=== PATIENT | male | born 1945 | race Caucasian/White ===

== ENCOUNTER 2017-08-24 12:04 | Emergency (ER) | payer MEDICARE ==
[2017-08-24] MEDS: TRIAMCINOLONE ACET 40 MG/ML INJ INJ (13:58)
== END 2017-08-24 15:00 | disposition home or self-care (01) ==
LOC: FTE 12:04
DX: M70.51 Other bursitis of knee, right knee (principal); Y93.9 Activity, unspecified; Z79.84 Long term (current) use of oral hypoglycemic drugs
CPT/HCPCS: 20610; 99283-25

== ENCOUNTER 2018-09-01 05:30 | Emergency (ER) | payer MEDICARE, OTHER ==
[2018-09-01 06:32] LABS: URINE BLOOD (Dip) POC Negative (NEGATIVE); URINE KETONES (Dip) POC Negative (NEGATIVE); URINE LEUKOCYTE EST (Dip) POC Negative (NEGATIVE); URINE NITRITE (Dip) POC Negative (NEGATIVE); URINE TOTAL PROTEIN POC Negative (NEGATIVE)
[2018-09-01] MEDS: TAMSULOSIN (SR) 0.4 MG CAP PO (07:07)
[2018-09-01 08:25] LABS: URINE BLOOD (Dip) POC Negative (NEGATIVE); URINE KETONES (Dip) POC Negative (NEGATIVE); URINE LEUKOCYTE EST (Dip) POC Negative (NEGATIVE); URINE NITRITE (Dip) POC Negative (NEGATIVE); URINE TOTAL PROTEIN POC Negative (NEGATIVE)
== END 2018-09-01 07:45 | disposition home or self-care (01) ==
LOC: E/R 05:30
DX: R33.9 Retention of urine, unspecified (principal); E11.9 Type 2 diabetes mellitus without complications; Z79.84 Long term (current) use of oral hypoglycemic drugs
CPT/HCPCS: 81003; 99283

== ENCOUNTER 2018-09-02 16:10 | Emergency (ER) | payer MEDICARE, OTHER | END 2018-09-02 18:20 | disposition home or self-care (01) | LOC: FTE 16:10 | DX: R33.9 Retention of urine, unspecified (principal) | CPT/HCPCS: 99283 ==

== ENCOUNTER → 2018-10-03 | Outpatient (CLI) | payer MEDICARE, OTHER | END | disposition home or self-care (01) | LOC: HKI 14:27 | DX: M12.812 Other specific arthropathies, not elsewhere classified, left shoulder (principal) | CPT/HCPCS: G0463 ==

== ENCOUNTER → 2018-10-20 | Outpatient (CLI) | payer MEDICARE, OTHER | END | disposition home or self-care (01) | LOC: HKI 08:54 | DX: M75.102 Unspecified rotator cuff tear or rupture of left shoulder, not specified as traumatic (principal); I10 Essential (primary) hypertension; E78.00 Pure hypercholesterolemia, unspecified; Z79.82 Long term (current) use of aspirin | CPT/HCPCS: G0463 ==

== ENCOUNTER 2018-11-27 06:51 | Inpatient (IN) | payer MEDICARE, OTHER ==
[2018-11-27] MEDS: DEXAMETHASONE 4 MG/ML 1 ML INJ IV (06:30)
[~2018-11-27 06:51] MED LIST: LACTATED RINGER'S 1,000 ML IV
[2018-11-27] MEDS ORDERED: SUCCINYLCHOLINE CHLORIDE 100 MG/5 ML SYG IV (07:00)
[2018-11-27] MEDS ORDERED: NEOSTIGMINE 3 MG/3 ML SYRINGE (07:00)
[2018-11-27] MEDS ORDERED: GLYCOPYRROLATE 0.4 MG INJ (07:00)
[2018-11-27] MEDS ORDERED: ROCURONIUM 50 MG INJ (07:00)
[2018-11-27] MEDS ORDERED: PROPOFOL 200 MG INJ (07:00)
[2018-11-27] MEDS ORDERED: LIDOCAINE 2% (SDV) 5 ML INJ (07:00)
[2018-11-27] MEDS ORDERED: DESFLURANE 15 MIN (07:00)
[2018-11-27] MEDS ORDERED: CEFAZOLIN 1 GM INJ (07:00)
[2018-11-27] MEDS ORDERED: SURGIFOAM POWDER 1 GM KIT (07:19)
[2018-11-27] MEDS ORDERED: THROMBIN (BOVINE) 5,000 UNIT VIAL TP (07:19)
[2018-11-27 07:41] LABS: ADD MAN DIFF? NO
[2018-11-27 07:49] LABS: WHITE BLOOD COUNT 7.2 10^3/ul (4.8-10.8)
[2018-11-27 07:49] LABS: BASOPHIL # 0.1 10^3/ul (0.0-0.1); BASOPHILS % 0.7 % (0.0-2.0); EOSINOPHILS # 0.2 10^3/ul (0.0-0.5); EOSINOPHILS % 3.1 % (0.0-7.0); HEMATOCRIT 42.6 % (42.0-52.0); HEMOGLOBIN 13.7 g/dl (14.0-18.0); LYMPHOCYTES # 1.7 10^3/ul (0.8-2.9); LYMPHOCYTES % 23.2 % (15.0-51.0); MEAN CORPUSCULAR HEMOGLOBIN 29.8 pg (29.0-33.0); MEAN CORPUSCULAR HGB CONC 32.2 g/dl (32.0-37.0); MEAN CORPUSCULAR VOLUME 92.8 fl (82.0-101.0); MEAN PLATELET VOLUME 11.5 fl (7.4-10.4); MONOCYTE # 0.6 10^3/ul (0.3-0.9); MONOCYTES % 7.9 % (0.0-11.0); NEUTROPHIL # 4.7 10^3/ul (1.6-7.5); NEUTROPHILS % 64.7 % (39.0-77.0); PLATELET COUNT 195 10^3/UL (140-415); RED BLOOD COUNT 4.59 10^6/ul (4.70-6.10); RED CELL DISTRIBUTION WIDTH 12.2 % (11.5-14.5)
[2018-11-27] MEDS: ACETAMINOPHEN 1000MG/100ML IV 100 ML IVPB (08:15)
[2018-11-27] MEDS ORDERED: HYDROmorphONE 1 MG/5 ML IV SYRINGE IV ×2 (09:00)
[2018-11-27] MEDS ORDERED: MEPERIDINE 25 MG INJ IV (09:00)
[2018-11-27] MEDS ORDERED: ONDANSETRON 4 MG INJ IV (09:00)
[2018-11-27] MEDS ORDERED: METOCLOPRAMIDE 10 MG INJ IV (09:00)
[2018-11-27] MEDS ORDERED: DIPHENHYDRAMINE 50 MG INJ IV (09:00)
[2018-11-27] MEDS ORDERED: FENTAnyl 50 MCG/ML VIAL IV ×2 (09:00)
[2018-11-27] MEDS ORDERED: ALBUTEROL 0.083% (NEB) 2.5 MG/3 ML AMP HHN (09:00)
[2018-11-27] MEDS ORDERED: TRANEXAMIC ACID 1GM/100ML(PMX) 200 ML (09:12)
[2018-11-27] MEDS: TRANEXAMIC ACID 1GM/100ML(PMX) 100 ML AT INCISION X1 IVPB ×2 (10:09→14:28)
[2018-11-27] MEDS ORDERED: MIDAZOLAM 1 MG/ML 2 ML INJ (10:15)
[2018-11-27] MEDS ORDERED: ROPIVACAINE 0.5 % 30 ML VIAL (10:16)
[2018-11-27] MEDS ORDERED: oxyCODONE 5 MG TAB PO (12:30)
[2018-11-27] MEDS: CEFAZOLIN 1 GM/50 ML (PMX) 50 ML IVPB ×2 (13:49→20:06)
[2018-11-27] MEDS: TRANEXAMIC ACID 1GM/100ML(PMX) 100 ML AT CLOSURE X1 IVPB (14:28)
[2018-11-27] MEDS: CEFAZOLIN 2 GM/50 ML (PMX) 50 ML (FOR WT < 120 KG) IVPB (14:28)
[2018-11-27] MEDS: ACETAMINOPHEN 500 MG TAB PO (14:29)
[2018-11-27] MEDS: GABAPENTIN 100 MG CAP PO ×2 (14:55→20:06)
[2018-11-27] MEDS: LACTATED RINGER'S 1,000 ML IV ×2 (14:56→22:27)
[2018-11-27] MEDS: metFORMIN 500 MG TAB PO (17:45)
[2018-11-27] MEDS: INSULIN ASPART [NOVOLOG] 3 ML PEN SC ×2 (18:30→21:44)
[2018-11-27] MEDS: TAMSULOSIN (SR) 0.4 MG CAP PO (20:06)
[2018-11-27] MEDS: ALLOPURINOL 300 MG TAB PO (20:06)
[2018-11-27] MEDS: ATENOLOL 25 MG TAB PO (20:07)
[2018-11-27] MEDS: LATANOPROST 0.005% 2.5 ML OPH BOTH EYES (21:00)
[2018-11-27] MEDS: INSULIN GLARGINE [LANTus] (100 UNITS/ML) SYG SC (21:43)
[2018-11-28] MEDS: ACCU-CHEK XX (01:46)
[2018-11-28] MEDS: oxyCODONE 5 MG TAB PO (03:02)
[2018-11-28] MEDS: CEFAZOLIN 1 GM/50 ML (PMX) 50 ML IVPB (04:11)
[2018-11-28] MEDS: KETOROLAC 15 MG INJ IV (04:11)
[2018-11-28] MEDS: PANTOPRAZOLE (EC) 40 MG TAB PO (06:00)
[2018-11-28] MEDS: oxyCODONE 15 MG TAB PO ×3 (06:24→20:31)
[2018-11-28] MEDS: GABAPENTIN 100 MG CAP PO ×3 (08:48→20:32)
[2018-11-28] MEDS: QUETIAPINE 25 MG TAB PO (08:48)
[2018-11-28] MEDS: ALLOPURINOL 300 MG TAB PO ×2 (08:48→20:31)
[2018-11-28] MEDS: DULOXETINE 20 MG CAP DR PO (08:48)
[2018-11-28] MEDS: ASPIRIN 81 MG TAB PO (08:48)
[2018-11-28] MEDS: INSULIN ASPART [NOVOLOG] 3 ML PEN SC ×5 (08:51→20:34)
[2018-11-28] MEDS: metFORMIN 500 MG TAB PO ×2 (08:53→18:00)
[2018-11-28] MEDS: AMLODIPINE 5 MG TAB PO (08:54)
[2018-11-28] MEDS: LISINOPRIL 5 MG TAB PO (08:54)
[2018-11-28 10:54] LABS: ADD MAN DIFF? NO
[2018-11-28 11:02] LABS: BASOPHILS % 0.2 % (0.0-2.0); HEMATOCRIT 34.4 % (42.0-52.0); HEMOGLOBIN 11.4 g/dl (14.0-18.0); LYMPHOCYTES % 9.4 % (15.0-51.0); MEAN CORPUSCULAR HEMOGLOBIN 30.4 pg (29.0-33.0); MEAN CORPUSCULAR HGB CONC 33.1 g/dl (32.0-37.0); MEAN CORPUSCULAR VOLUME 91.7 fl (82.0-101.0); MEAN PLATELET VOLUME 11.1 fl (7.4-10.4); MONOCYTE # 0.9 10^3/ul (0.3-0.9); MONOCYTES % 8.9 % (0.0-11.0); NEUTROPHIL # 8.6 10^3/ul (1.6-7.5); NEUTROPHILS % 81.2 % (39.0-77.0); PLATELET COUNT 162 10^3/UL (140-415); RED BLOOD COUNT 3.75 10^6/ul (4.70-6.10); RED CELL DISTRIBUTION WIDTH 12.3 % (11.5-14.5)
[2018-11-28 11:02] LABS: WHITE BLOOD COUNT 10.6 10^3/ul (4.8-10.8)
[2018-11-28 11:18] LABS: ALANINE AMINOTRANSFERASE 16 IU/L (13-69); ALBUMIN 3.3 g/dl (3.3-4.9); ALBUMIN/GLOBULIN RATIO 1.22; ALKALINE PHOSPHATASE 70 IU/L (42-121); ANION GAP 8 (5-13); ASPARTATE AMINO TRANSFERASE 21 IU/L (15-46); BILIRUBIN,INDIRECT 0.6 mg/dl (0-1.1); BILIRUBIN,TOTAL 0.6 mg/dl (0.2-1.3); BLOOD UREA NITROGEN 26 mg/dl (7-20); CALCIUM 9.2 mg/dl (8.4-10.2); CARBON DIOXIDE 30 mmol/L (21-31); CHLORIDE 96 mmol/L (97-110); GLUCOSE 248 mg/dl (70-220); SODIUM 134 mmol/L (135-144)
[2018-11-28] MEDS: TAMSULOSIN (SR) 0.4 MG CAP PO (20:31)
[2018-11-28] MEDS: ATENOLOL 25 MG TAB PO (20:32)
[2018-11-28] MEDS: INSULIN GLARGINE [LANTus] (100 UNITS/ML) SYG SC (20:35)
[2018-11-28] MEDS: LATANOPROST 0.005% 2.5 ML OPH BOTH EYES (20:53)
[2018-11-29] MEDS: oxyCODONE 15 MG TAB PO ×2 (00:47→05:08)
[2018-11-29] MEDS: ACCU-CHEK XX (02:08)
[2018-11-29] MEDS: PANTOPRAZOLE (EC) 40 MG TAB PO (05:08)
[2018-11-29 05:18] LABS: ADD MAN DIFF? NO
[2018-11-29 05:29] LABS: WHITE BLOOD COUNT 9.1 10^3/ul (4.8-10.8)
[2018-11-29 05:29] LABS: BASOPHILS % 0.3 % (0.0-2.0); EOSINOPHILS % 0.3 % (0.0-7.0); HEMATOCRIT 35.9 % (42.0-52.0); HEMOGLOBIN 11.7 g/dl (14.0-18.0); LYMPHOCYTES # 1.1 10^3/ul (0.8-2.9); MEAN CORPUSCULAR HEMOGLOBIN 30.1 pg (29.0-33.0); MEAN CORPUSCULAR HGB CONC 32.6 g/dl (32.0-37.0); MEAN CORPUSCULAR VOLUME 92.3 fl (82.0-101.0); MEAN PLATELET VOLUME 11.8 fl (7.4-10.4); MONOCYTE # 0.9 10^3/ul (0.3-0.9); MONOCYTES % 9.8 % (0.0-11.0); NEUTROPHILS % 77.2 % (39.0-77.0); PLATELET COUNT 160 10^3/UL (140-415); RED BLOOD COUNT 3.89 10^6/ul (4.70-6.10); RED CELL DISTRIBUTION WIDTH 12.6 % (11.5-14.5)
[2018-11-29 05:39] LABS: ANION GAP 8 (5-13); BLOOD UREA NITROGEN 24 mg/dl (7-20); CARBON DIOXIDE 31 mmol/L (21-31); CHLORIDE 98 mmol/L (97-110); CREATININE 1.12 mg/dl (0.61-1.24); GLUCOSE 148 mg/dl (70-220); MAGNESIUM 1.8 mg/dl (1.7-2.5); PHOSPHORUS 3.8 mg/dl (2.5-4.9); POTASSIUM 4.1 mmol/L (3.5-5.1); SODIUM 137 mmol/L (135-144)
[2018-11-29] MEDS: oxyCODONE 5 MG TAB PO (08:52)
[2018-11-29] MEDS: QUETIAPINE 25 MG TAB PO (08:52)
[2018-11-29] MEDS: DULOXETINE 20 MG CAP DR PO (08:52)
[2018-11-29] MEDS: LISINOPRIL 5 MG TAB PO (08:53)
[2018-11-29] MEDS: GABAPENTIN 100 MG CAP PO ×3 (08:53→20:49)
[2018-11-29] MEDS: ASPIRIN 81 MG TAB PO (08:53)
[2018-11-29] MEDS: ALLOPURINOL 300 MG TAB PO ×2 (08:53→20:49)
[2018-11-29] MEDS: AMLODIPINE 5 MG TAB PO (08:53)
[2018-11-29] MEDS: INSULIN ASPART [NOVOLOG] 3 ML PEN SC ×7 (08:59→20:54)
[2018-11-29] MEDS: metFORMIN 500 MG TAB PO ×2 (09:01→18:12)
[2018-11-29] MEDS: TAMSULOSIN (SR) 0.4 MG CAP PO (20:49)
[2018-11-29] MEDS: ATENOLOL 25 MG TAB PO (20:50)
[2018-11-29] MEDS: INSULIN GLARGINE [LANTus] (100 UNITS/ML) SYG SC (20:53)
[2018-11-29] MEDS: LATANOPROST 0.005% 2.5 ML OPH BOTH EYES (21:00)
[2018-11-30] MEDS: MAGNESIUM HYDROXIDE 30ML CUP PO (00:19)
[2018-11-30] MEDS: ACCU-CHEK XX (02:00)
[2018-11-30 05:15] LABS: ADD MAN DIFF? NO
[2018-11-30 05:23] LABS: BASOPHILS % 0.3 % (0.0-2.0); EOSINOPHILS # 0.1 10^3/ul (0.0-0.5); EOSINOPHILS % 0.8 % (0.0-7.0); HEMATOCRIT 35.6 % (42.0-52.0); HEMOGLOBIN 11.4 g/dl (14.0-18.0); LYMPHOCYTES # 1.1 10^3/ul (0.8-2.9); LYMPHOCYTES % 13.9 % (15.0-51.0); MEAN CORPUSCULAR HEMOGLOBIN 29.5 pg (29.0-33.0); MEAN CORPUSCULAR VOLUME 92.2 fl (82.0-101.0); MEAN PLATELET VOLUME 11.5 fl (7.4-10.4); MONOCYTE # 0.9 10^3/ul (0.3-0.9); MONOCYTES % 12.1 % (0.0-11.0); NEUTROPHIL # 5.5 10^3/ul (1.6-7.5); NEUTROPHILS % 72.5 % (39.0-77.0); PLATELET COUNT 162 10^3/UL (140-415); RED BLOOD COUNT 3.86 10^6/ul (4.70-6.10); RED CELL DISTRIBUTION WIDTH 12.7 % (11.5-14.5)
[2018-11-30 05:23] LABS: WHITE BLOOD COUNT 7.5 10^3/ul (4.8-10.8)
[2018-11-30 05:54] LABS: ANION GAP 7 (5-13); BLOOD UREA NITROGEN 26 mg/dl (7-20); CALCIUM 9.1 mg/dl (8.4-10.2); CARBON DIOXIDE 31 mmol/L (21-31); CHLORIDE 98 mmol/L (97-110); CREATININE 1.09 mg/dl (0.61-1.24); GLUCOSE 206 mg/dl (70-220); PHOSPHORUS 3.6 mg/dl (2.5-4.9); SODIUM 136 mmol/L (135-144)
[2018-11-30] MEDS: PANTOPRAZOLE (EC) 40 MG TAB PO (06:16)
[2018-11-30] MEDS: KETOROLAC 15 MG INJ IV (06:16)
[2018-11-30] MEDS: GABAPENTIN 100 MG CAP PO ×2 (08:59→13:18)
[2018-11-30] MEDS: ASPIRIN 81 MG TAB PO (08:59)
[2018-11-30] MEDS: ALLOPURINOL 300 MG TAB PO (08:59)
[2018-11-30] MEDS: DULOXETINE 20 MG CAP DR PO (08:59)
[2018-11-30] MEDS: QUETIAPINE 25 MG TAB PO (08:59)
[2018-11-30] MEDS: AMLODIPINE 5 MG TAB PO (09:07)
[2018-11-30] MEDS: INSULIN ASPART [NOVOLOG] 3 ML PEN SC ×4 (09:08→13:20)
[2018-11-30] MEDS: LISINOPRIL 5 MG TAB PO (09:10)
[2018-11-30] MEDS: metFORMIN 500 MG TAB PO (09:10)
[2018-11-30] MEDS: OXYCODONE/ACETAMINOPHEN (10/325) TAB PO (10:24)
== END 2018-11-30 15:40 | disposition home health service (06) | DRG 483 ==
LOC: REC 06:51 → MS1 14:40
PROVIDERS: Orthopaedic Surgery
PROC: 0RRJ00Z Replacement of Right Shoulder Joint with Reverse Ball and Socket Synthetic Substitute, Open Approach (ICD-10-PCS; principal; 2018-11-27 08:30)
DX: M75.101 Unspecified rotator cuff tear or rupture of right shoulder, not specified as traumatic (principal); I10 Essential (primary) hypertension; E11.9 Type 2 diabetes mellitus without complications; H53.9 Unspecified visual disturbance; G89.29 Other chronic pain; Z79.4 Long term (current) use of insulin; Z79.82 Long term (current) use of aspirin
CPT/HCPCS: 80048; 80053; 82962; 83735; 84100; 85025; 86850; 86900; 86901; 87081; 88304; 88311; 97161; 97167